=== PATIENT | male | born 1955 | race Caucasian/White ===

== ENCOUNTER → 2018-05-27 | Outpatient (CLI) | payer OTHER ==
--- NOTE | 2018-05-27 09:11 | CT ---
EXAMINATION TYPE: CT chest wo con DATE OF EXAM: 05/27/2018 COMPARISON: None HISTORY: Solitary pulmonary nodule Unenhanced CT of the chest was performed with lung and mediastinal window settings submitted. The la ck of contrast limits evaluation of the vascular, mediastinal and parenchymal structures including th e upper abdomen. LUNGS: The lungs are clear and free of infiltrate. No atelectasis. Calcified pulmonary nodule left lo wer lobe measuring 1.2 cm. No additional pulmonary nodules identified.This time. No pleural effusion. No CT evidence of interstitial lung disease. MEDIASTINUM/KYLE: Thoracic aorta is of normal caliber with limited evaluation given lack of contrast . The heart is not enlarged. No evidence for mediastinal mass. No lymph nodes greater than 1cm. UPPER ABDOMEN: No significant abnormality is seen. OTHER: No significant other abnormality. IMPRESSION: 1. Partially calcified granuloma left lower lobe. Otherwise unremarkable study.
== END | disposition home or self-care (01) ==
LOC: RADCTMAIN 06:54
PROVIDERS: ATTEND Nurse Practitioner Family
DX: J84.10 Pulmonary fibrosis, unspecified (principal)
CPT/HCPCS: 71250